=== PATIENT | female | born 2000 | race Caucasian/White ===

== ENCOUNTER 2024-10-08 15:55 | Inpatient (IN) ==
[2024-10-08] MEDS ORDERED: LIDOCAINE 1% LOCAL 20 ML VIAL INFIL PRN (17:20)
[2024-10-08] MEDS ORDERED: CALCIUM CARBONATE 500 MG CHEWABLE TAB PO PRN (17:20)
[2024-10-08] MEDS ORDERED: OXYTOCIN 30 UNITS/NSS 30 UNITS/500 ML BAG IV PRN (17:20)
[2024-10-08] MEDS: ACETAMINOPHEN 325 MG TAB PO PRN (17:33)
--- NOTE | 2024-10-08 17:34 | History & Physical Report ---
Date of Service October 08, 2024 Assessment & Plan (1) Two vessel cord: Plan: FHT now reassuring but given 2 documented decelerations, will start induction tonight with cervical balloon and low dose pitocin. will have her eat regular diet now the cervical balloon insertion Admission and Anticipated Discharge Date Admission Date: October 08, 2024 History of Present Illness Primary Care Provider: MARLIN Ayala Patient is a 24 yo female EDC 10/11/24 who presents at 39 4/7 weeks after an NST done at the office which shows 2 spontaneous decels to 90 bpm. otherwise tracing has been category and the tracing has continued to be category1 during monitoring here in L&D. she is on for IOL tomorrow because of obesity and 2 vessel cord. complicated by IUGR early but resolved at 28 weeks. growth scan at 36 weeks shows EFW @ 45% and AC a@ 42%. also complicated by hypothyroidism. blood type A-positive/ GBS -negative Allergies Allergy/AdvReac Type Severity Reaction Status Date / Time No Known Allergies Allergy Verified 10/08/24 14:43 Home Medications Medication Instructions Recorded Confirmed Type levothyroxine 100 mcg tablet 100 mcg PO DAILY 10/08/24 10/08/24 History vits no.124-ferrous fum 1 tab PO HS 10/08/24 10/08/24 History 27 mg iron-folic acid 800 mcg tablet ( Vitamin) Patient History Medical History Nonimmune to hepatitis B virus Hypothyroid Two vessel umbilical cord Migraine Varicella vaccination Surgical History No history of previous surgery Family History Mother Thyroid cancer hemorrhage Denies family history of Ovarian cancer Breast cancer Colorectal cancer Social History Smoking Status: Former smoker Tobacco Type: E-cigarettes / Vaping Second Hand Exposure: No; Do You Dip or Chew Tobacco: No; Hx Alcohol Use: No Hx Substance Use: No Preferred Language: Romanian Communication Ability: Effective Insurance Appraiser Required: No Beliefs That Will Affect Care: None marital status: marital status details: Brett Mast (22) [phone] Current Living Situation: Alone and Spouse Current Living Situation Comment: , 1 dog, 1 cat current occupational status: employed current occupation: [employer] Other Information That Helps Us Care for You: No Feels Safe at Home: Yes Safety Concerns: Feels Safe At This Time Assistive Devices: None Review of Systems All systems reviewed & are unremarkable except as noted in HPI & below Physical Exam Constitutional: WD/WN, vitals as above Psychiatric: A+Ox3, euthymic affect Genitourinary: Manual OB Exam: + cervical dilation fingertip, + cervical effacement 50% and + station -1 OB Exam Monitor Tracing: + external FHT monitor used, + external uterine monitor used, + category I and + normal FHT variability Results & Data Vital Signs (Past 12 Hours) Vital Signs Temp Pulse Resp BP 10/08/24 16:05 98.2 F 16 10/08/24 16:03 99 H 132/82 Code Status & VTE Plan VTE Prophylaxis Plan VTE Prophylaxis will be ordered: No Coding Level of Care Code 79124 INT INP/OBS CARE 1/40MIN Diagnoses Two vessel cord Q27.0 CPT Codes Misx Procedure Codes - 55081 Placement of cervical dilator: 49188 Placement of cervical dilator ([id number])
[2024-10-08 18:02] LABS: Hematocrit (blood only) 39.3 % (37.0-47.0); Hemoglobin 13.1 g/dl (12.0-16.0); Mean Corpuscular Hemoglobin 28.2 pg (25.0-34.0); Mean Corpuscular Hgb Conc 33.3 g/dL (32.0-36.0); Mean Corpuscular Volume 84.7 fL (80.0-100.0); Mean Platelet Volume 11.3 fL (9.4-12.4); Platelet Count 204 K/uL (130-400); RDW Coefficient of Variation 13.7 % (11.5-14.5); Red Blood Count 4.64 M/uL (4.20-5.40)
--- NOTE | 2024-10-08 19:18 | Labor Progress Brief Note ---
Date of Service October 08, 2024 Subjective Reason For Note: Other cervical balloon placed under direct visualization with assistance of stylet. 40cc sterile water infused into balloon. stylet removed and mccormick placed on traction and secured to her left thigh she tolerated procedure well. FHT's are Category 1 will start low dose pitocin overnight Review of Systems All systems reviewed & are unremarkable except as noted in HPI & below Assessment & Plan Admission and Anticipated Discharge Date Admission Date: October 08, 2024 Physical Exam Constitutional: WD/WN, vitals as above Psychiatric: A+Ox3, euthymic affect Genitourinary: OB Exam Monitor Tracing: + external FHT monitor used, + external uterine monitor used, + category I and + normal FHT variability Results & Data Vital Signs (Past 12 Hours) Vital Signs Temp Pulse Resp BP 10/08/24 16:05 98.2 F 16 10/08/24 16:03 99 H 132/82 Coding Level of Care Code 98257 SUB INP/OBS CARE 08/04MIN
[2024-10-08] MEDS: LACTATED RINGER'S 1,000 ML IV PRN (19:42)
[2024-10-08] MEDS: OXYTOCIN 30 UNITS/NSS 30 UNITS/500 ML BAG IV PRN (19:43)
[2024-10-08] MEDS: diphenhydrAMINE Capsule 25 MG CAP PO STA (21:02)
[2024-10-09] MEDS: LEVOTHYROXINE SODIUM 100 MCG TABLET PO SCH (06:32)
--- NOTE | 2024-10-09 09:43 | Labor Progress Brief Note ---
Date of Service October 09, 2024 Subjective comfortable, balloon has not fallen out. Assessment & Plan (1) Encounter for induction of labor: (2) Two vessel cord: (3) Obesity affecting : Plan will now add pitocin, and see how that and arom helps labor pattern. fhts categ 1. Admission and Anticipated Discharge Date Admission Date: October 08, 2024 Physical Exam Constitutional: WD/WN, vitals as above Genitourinary: Manual OB Exam: + cervical dilation (3-4), + cervical effacement (75%), + station -2 and + amniotic fluid (arom) clear OB Exam Monitor Tracing: + external FHT monitor used, + external uterine monitor used (q4), + category I and + normal FHT variability Results & Data Vital Signs (Past 12 Hours) Vital Signs Temp Pulse Resp BP 10/09/24 09:38 96 H 131/84 10/09/24 08:37 81 143/91 H 10/09/24 07:02 98.4 F 90 20 131/78 10/09/24 06:47 81 107/58 L 10/09/24 05:47 81 95/51 L 10/09/24 04:47 81 120/65 10/09/24 03:47 84 114/62 10/09/24 02:47 82 102/57 L 10/09/24 01:47 79 110/61 10/09/24 00:47 86 109/57 L 10/08/24 23:47 78 10/08/24 23:47 104/56 L 10/08/24 23:00 16 10/08/24 23:00 97.7 F 16 10/08/24 22:47 84 10/08/24 22:47 111/63 10/08/24 21:47 86 10/08/24 21:47 125/66 Coding Level of Care Code None Diagnoses Encounter for induction of labor Z34.90 Two vessel cord Q27.0 Obesity affecting O99.210
[2024-10-09] MEDS ORDERED: BUPIVACAINE 0.25% PF 30 ML VIAL EPI PRN (11:25)
[2024-10-09] MEDS ORDERED: fentaNYL citrate PF 100 MCG/2 ML VIAL EPI PRN (11:25)
[2024-10-09] MEDS ORDERED: fentANYL 2 MCG/ML BUPIVacaine 0.125%-NSS 100ML BAG EPI PRN (11:25)
[2024-10-09] MEDS ORDERED: diphenhydrAMINE 50 MG/ML VIAL IV PRN (11:25)
[2024-10-09] MEDS ORDERED: LIDOCAINE 2% MPF LOCAL 5 ML VIAL EPI PRN (11:25)
[2024-10-09] MEDS ORDERED: ROPIVACAINE 0.5% PF 5 MG/ML 20 ML VIAL EPI PRN (11:25)
[2024-10-09] MEDS ORDERED: NALOXONE HCL 0.4 MG/1 ML VIAL/CARP IV PRN (11:25)
[2024-10-09] MEDS ORDERED: NALBUPHINE HCL INJ 10 MG/ML AMP IV PRN (11:25)
[2024-10-09] MEDS ORDERED: ePHEDrine sulfate 50 MG/ML AMP IV PRN (11:25)
[2024-10-09] MEDS ORDERED: SODIUM CHLORIDE 0.9% PF INJ 10 ML VIAL EPI PRN (11:25)
[2024-10-09] MEDS ORDERED: NALOXONE HCL 1 MG in SODIUM CHLORIDE 0.9% 1,000 ML IV PRN (11:25)
--- NOTE | 2024-10-09 11:25 | Anesthesiology Consultation ---
Date of Service October 09, 2024 Assessment & Plan Chart Review Chart Review: Acceptable Risk for Labor Epidural Consults Requested none History Height/Weight Height: 6 ft Weight: 143.789 kg Allergies Allergy/AdvReac Type Severity Reaction Status Date / Time No Known Allergies Allergy Verified 10/08/24 14:43 Medications Home Medications Medication Instructions Recorded Confirmed Last Taken levothyroxine 100 mcg tablet 100 mcg PO DAILY 10/08/24 10/08/24 10/08/24 vits no.124-ferrous fum 1 tab PO HS 10/08/24 10/08/24 1 Day Ago 27 mg iron-folic acid 800 mcg ~10/07/24 tablet ( Vitamin) Active Medications Generic Name Dose Route Start Last Admin Trade Name Freq PRN Reason Stop Dose Admin Acetaminophen 650 mg 10/08/24 17:20 10/08/24 17:33 Acetaminophen 325 Mg Tab PO 11/07/24 17:19 650 mg Q6H PRN Administration Pain Lactated Ringer's 1,000 mls @ 125 mls/hr 10/08/24 17:20 10/09/24 11:18 Lr IV 10/09/24 17:19 999 mls/hr .Q8H PRN Administration L&D Protocol Protocol Oxytocin 30 units in 500 mls @ 7 mls/hr 10/08/24 17:20 10/09/24 10:30 Pitocin 30 Units/Nss IV 10/10/24 17:19 0.42 units/hr .Q24H PRN 7 mls/hr Labor Induction/Augmentation Titration Protocol 0.42 UNITS/HR Levothyroxine Sodium 100 mcg 10/09/24 06:30 10/09/24 06:32 Levothyroxine Sodium 100 Mcg Tablet PO 11/08/24 06:29 100 mcg DAILYBB JENNIFER Administration Past Medical History Medical History (Updated 10/09/24 @ 09:43 by Steph Samano MD, FACOG) Nonimmune to hepatitis B virus Hypothyroid Two vessel umbilical cord Migraine Varicella vaccination Past Family History Family History Mother Thyroid cancer hemorrhage Denies family history of Ovarian cancer Breast cancer Colorectal cancer Past Surgical History Surgical History No history of previous surgery Social History Smoking Status: Former smoker Do You Dip or Chew Tobacco: No Hx Alcohol Use: No Hx Substance Use: No substance use type: does not use Physical Exam Vital Signs Last Vital Signs Temp 36.9 C 10/09/24 11:00 Pulse 97 H 10/09/24 10:39 Resp 20 10/09/24 11:00 BP 123/81 10/09/24 10:39 Testing Laboratory Results 10/08/24 17:34 Blood Type A Positive 10/08/24 17:34 Antibody Screen NEGATIVE 10/08/24 17:34
[2024-10-09] MEDS: LIDOCAINE 2%/EPINEPHRINE 1:200,000 20 ML PF ONE (11:46)
[2024-10-09] MEDS: fentANYL 2 MCG/ML BUPIVacaine 0.125%-NSS 100ML BAG ONE (11:51)
[2024-10-09] MEDS ORDERED: LIDOCAINE 2%/EPINEPHRINE 1:200,000 20 ML PF ONE (12:33)
--- NOTE | 2024-10-09 13:12 | Anesthesia Procedure Note ---
Date of Service October 09, 2024 Anesthesia Epidural Re-Dose Vital Signs Temp Pulse Resp BP Pulse Ox 36.9 C 117 H 20 127/70 98 10/09/24 12:58 10/09/24 13:06 10/09/24 12:58 10/09/24 13:06 10/09/24 13:02 Notes Pain Intensity: 0 Dilatation (cm): 3.5 Effacement (%): 75 called to bedside d/t continued contraction pain s/p epidural placement. pt c/o contraction pain with no change in motor/sensory. Proceeded to remove the epidural catheter with tip intact and replace epidural catheter as recorded in medical record. pt reports relief after dosing of second epidural. After Epidural Re-Dose Mental Status: alert / awake / arousable Pain: adequately controlled Airway Patency, RR, SpO2: stable & adequate BP & HR: stable & adequate
--- NOTE | 2024-10-09 14:02 | Labor Progress Brief Note ---
Date of Service October 09, 2024 Subjective now comfortable with all new epidural. Assessment & Plan (1) Encounter for induction of labor: (2) Two vessel cord: Plan c/w pit, will place mccormick for cont drainage for now, since remote from delivery. some cx change. fhts categ 1. Admission and Anticipated Discharge Date Admission Date: October 08, 2024 Physical Exam Constitutional: WD/WN, vitals as above Genitourinary: Manual OB Exam: + cervical dilation (3-4), + cervical effacement 80% and + station -2 OB Exam Monitor Tracing: + external FHT monitor used, + external uterine monitor used (q2), + category I and + normal FHT variability Results & Data Vital Signs (Past 12 Hours) Vital Signs Temp Pulse Resp BP Pulse Ox 10/09/24 13:57 106 H 100 10/09/24 13:52 104 H 100 10/09/24 13:51 101 H 108/71 10/09/24 13:47 103 H 100 10/09/24 13:42 103 H 100 10/09/24 13:37 102 H 100 10/09/24 13:36 106 H 118/66 10/09/24 13:32 103 H 100 10/09/24 13:30 18 10/09/24 13:30 18 10/09/24 13:27 113 H 100 10/09/24 13:22 104 H 100 10/09/24 13:21 113 H 114/62 10/09/24 13:20 108 H 111/63 10/09/24 13:18 117 H 114/65 10/09/24 13:17 112 H 100 10/09/24 13:16 118 H 113/64 10/09/24 13:14 118 H 111/56 L 10/09/24 13:12 100 10/09/24 13:12 114 H 10/09/24 13:12 106 H 119/59 L 10/09/24 13:10 122 H 123/62 10/09/24 13:08 136 H 118/62 10/09/24 13:07 140 H 100 10/09/24 13:06 117 H 127/70 10/09/24 13:05 18 10/09/24 13:05 18 10/09/24 13:04 116 H 129/75 10/09/24 13:02 98 10/09/24 13:02 111 H 10/09/24 13:02 114 H 126/75 10/09/24 13:00 107 H 130/74 10/09/24 12:58 98.4 F 103 H 20 128/71 10/09/24 12:57 112 H 99 10/09/24 12:56 100 H 131/77 10/09/24 12:54 105 H 128/73 10/09/24 12:52 98 H 98 10/09/24 12:47 106 H 98 10/09/24 12:45 110 H 136/81 10/09/24 12:42 114 H 100 10/09/24 12:37 101 H 96 10/09/24 12:32 90 97 10/09/24 12:30 83 133/77 10/09/24 12:27 84 96 10/09/24 12:22 93 H 97 10/09/24 12:17 92 H 97 10/09/24 12:15 91 H 127/73 10/09/24 12:14 85 132/84 10/09/24 12:12 91 H 96 10/09/24 12:11 94 H 127/68 10/09/24 12:09 88 135/75 10/09/24 12:07 87 126/75 97 10/09/24 12:05 88 129/75 10/09/24 12:03 91 H 126/77 10/09/24 12:02 93 H 96 10/09/24 12:01 88 131/78 10/09/24 12:00 20 10/09/24 12:00 20 10/09/24 11:59 88 127/76 10/09/24 11:57 96 10/09/24 11:57 95 H 10/09/24 11:57 82 131/71 10/09/24 11:55 87 20 127/74 10/09/24 11:53 93 H 129/80 10/09/24 11:52 95 H 97 10/09/24 11:51 91 H 18 131/77 10/09/24 11:50 99 H 126/80 10/09/24 11:47 93 H 98 10/09/24 11:42 115 H 99 10/09/24 11:38 116 H 141/93 H 10/09/24 11:37 123 H 99 10/09/24 11:32 110 H 99 04/01/25 11:27 95 H 98 10/09/24 11:00 20 10/09/24 11:00 98.4 F 20 10/09/24 10:39 97 H 123/81 10/09/24 09:38 96 H 131/84 10/09/24 08:37 81 143/91 H 10/09/24 07:02 98.4 F 90 20 131/78 10/09/24 06:47 81 107/58 L 10/09/24 05:47 81 95/51 L 10/09/24 04:47 81 120/65 10/09/24 03:47 84 114/62 10/09/24 02:47 82 102/57 L Coding Level of Care Code None Diagnoses Encounter for induction of labor Z34.90 Two vessel cord Q27.0
[2024-10-09] MEDS: ONDANSETRON INJ 2 MG/ML 2 ML VIAL IV PRN (14:10)
--- NOTE | 2024-10-09 17:17 | Labor Progress Brief Note ---
Date of Service October 09, 2024 Subjective urge to push, nursing notes pt complete Assessment & Plan (1) Encounter for induction of labor: (2) Two vessel cord: (3) Obesity affecting : Plan begin 2nd stage. fhts categ 1. anticip soon. Admission and Anticipated Discharge Date Admission Date: October 08, 2024 Physical Exam Constitutional: WD/WN, vitals as above Genitourinary: Manual OB Exam: + cervical dilation 10 cm, + cervical effacement 100% and + station + 3 OB Exam Monitor Tracing: + external FHT monitor used, + external uterine monitor used, + category I and + normal FHT variability Results & Data Vital Signs (Past 12 Hours) Vital Signs Temp Pulse Resp BP Pulse Ox 10/09/24 17:12 149 H 88 L 10/09/24 17:07 100 10/09/24 17:07 142 H 10/09/24 17:07 137 H 157/81 H 10/09/24 17:02 152 H 100 10/09/24 17:00 20 10/09/24 17:00 98.4 F 20 10/09/24 16:57 98 H 100 10/09/24 16:52 103 H 100 10/09/24 16:51 92 H 103/60 10/09/24 16:47 100 H 98 10/09/24 16:42 98 H 100 10/09/24 16:37 97 H 99 10/09/24 16:36 107 H 103/63 10/09/24 16:32 97 H 100 10/09/24 16:27 104 H 100 10/09/24 16:22 106 H 100 10/09/24 16:21 99 H 109/57 L 10/09/24 16:17 104 H 100 10/09/24 16:12 97 H 100 10/09/24 16:08 116 H 111/58 L 10/09/24 16:07 118 H 100 10/09/24 16:02 106 H 100 10/09/24 16:00 20 10/09/24 16:00 20 10/09/24 15:57 113 H 100 10/09/24 15:52 100 10/09/24 15:52 94 H 10/09/24 15:52 98 H 120/68 10/09/24 15:47 88 100 10/09/24 15:42 86 100 10/09/24 15:37 85 100 10/09/24 15:36 89 112/67 10/09/24 15:32 87 100 10/09/24 15:30 20 10/09/24 15:30 20 10/09/24 15:27 89 100 10/09/24 15:23 83 116/69 10/09/24 15:22 83 100 10/09/24 15:17 83 100 10/09/24 15:12 79 100 10/09/24 15:07 87 100 10/09/24 15:06 81 122/63 10/09/24 15:02 92 H 100 10/09/24 15:00 20 10/09/24 15:00 98.4 F 20 10/09/24 14:57 84 100 10/09/24 14:52 100 10/09/24 14:52 81 10/09/24 14:52 78 121/62 10/09/24 14:47 79 99 10/09/24 14:42 81 100 10/09/24 14:37 82 100 10/09/24 14:36 84 120/68 10/09/24 14:32 83 100 10/09/24 14:30 20 10/09/24 14:30 20 10/09/24 14:27 90 100 10/09/24 14:22 95 H 100 10/09/24 14:21 88 111/66 10/09/24 14:17 92 H 100 10/09/24 14:12 96 H 100 10/09/24 14:08 105 H 105/57 L 10/09/24 14:07 98 H 100 10/09/24 14:02 101 H 100 10/09/24 14:00 20 10/09/24 14:00 20 10/09/24 13:57 106 H 100 10/09/24 13:52 104 H 100 10/09/24 13:51 101 H 108/71 10/09/24 13:47 103 H 100 10/09/24 13:42 103 H 100 10/09/24 13:37 102 H 100 10/09/24 13:36 106 H 118/66 10/09/24 13:32 103 H 100 10/09/24 13:30 18 10/09/24 13:30 18 10/09/24 13:27 113 H 100 10/09/24 13:22 104 H 100 10/09/24 13:21 113 H 114/62 10/09/24 13:20 108 H 111/63 10/09/24 13:18 117 H 114/65 10/09/24 13:17 112 H 100 10/09/24 13:16 118 H 113/64 10/09/24 13:14 118 H 111/56 L 10/09/24 13:12 100 10/09/24 13:12 114 H 10/09/24 13:12 106 H 119/59 L 10/09/24 13:10 122 H 123/62 10/09/24 13:08 136 H 118/62 10/09/24 13:07 140 H 100 10/09/24 13:06 117 H 127/70 10/09/24 13:05 18 10/09/24 13:05 18 10/09/24 13:04 116 H 129/75 10/09/24 13:02 98 10/09/24 13:02 111 H 10/09/24 13:02 114 H 126/75 10/09/24 13:00 107 H 130/74 10/09/24 12:58 98.4 F 103 H 20 128/71 10/09/24 12:57 112 H 99 10/09/24 12:56 100 H 131/77 10/09/24 12:54 105 H 128/73 10/09/24 12:52 98 H 98 10/09/24 12:47 106 H 98 10/09/24 12:45 110 H 136/81 10/09/24 12:42 114 H 100 10/09/24 12:37 101 H 96 10/09/24 12:32 90 97 10/09/24 12:30 83 133/77 10/09/24 12:27 84 96 10/09/24 12:22 93 H 97 10/09/24 12:17 92 H 97 10/09/24 12:15 91 H 127/73 10/09/24 12:14 85 132/84 10/09/24 12:12 91 H 96 10/09/24 12:11 94 H 127/68 10/09/24 12:09 88 135/75 10/09/24 12:07 87 126/75 97 10/09/24 12:05 88 129/75 10/09/24 12:03 91 H 126/77 10/09/24 12:02 93 H 96 10/09/24 12:01 88 131/78 10/09/24 12:00 20 10/09/24 12:00 20 10/09/24 11:59 88 127/76 10/09/24 11:57 96 10/09/24 11:57 95 H 10/09/24 11:57 82 131/71 10/09/24 11:55 87 20 127/74 10/09/24 11:53 93 H 129/80 10/09/24 11:52 95 H 97 10/09/24 11:51 91 H 18 131/77 10/09/24 11:50 99 H 126/80 10/09/24 11:47 93 H 98 10/09/24 11:42 115 H 99 10/09/24 11:38 116 H 141/93 H 10/09/24 11:37 123 H 99 10/09/24 11:32 110 H 99 10/09/24 11:27 95 H 98 10/09/24 11:00 20 10/09/24 11:00 98.4 F 20 10/09/24 10:39 97 H 123/81 10/09/24 09:38 96 H 131/84 10/09/24 08:37 81 143/91 H 10/09/24 07:02 98.4 F 90 20 131/78 10/09/24 06:47 81 107/58 L 10/09/24 05:47 81 95/51 L Coding Level of Care Code None Diagnoses Encounter for induction of labor Z34.90 Two vessel cord Q27.0 Obesity affecting O99.210
[2024-10-09] MEDS ORDERED: ACETAMINOPHEN 325 MG TAB PO PRN (17:50)
[2024-10-09] MEDS ORDERED: oxyCODONE/ACETAMINOPHEN 5mg/325mg TAB PO PRN (17:50)
[2024-10-09] MEDS ORDERED: HYDROCORTISONE ACETATE 25 MG SUPP PR PRN (17:50)
[2024-10-09] MEDS ORDERED: bisacodyL 10 MG SUPP PR PRN (17:50)
--- NOTE | 2024-10-09 17:51 | Delivery Summary ---
Vaginal Delivery Summary Date of Service October 09, 2024 Vaginal Delivery Summary The patient dilated to complete and pushed to deliver a viable female infant Apgars 8 and 9 via over intact perineum. Mouth and nose bulb suctioned at perineum. Shoulders and body delivered with ease. Infant was vigorous and crying at . Cord clamped at 30 seconds of life and infant to maternal abdomen where the cord was then doubly clamped and cut. Placenta delivered spontaneously and intact, three-vessel cord. Hemostasis achieved with dilute pitocin and uterine massage. Small vaginal laceration repaired with 3-0 vicryl for excellent hemostasis. Cervix and sulci intact. QBL 245 cc. Mother and baby stable in recovery. [facility] Vaginal Delivery Charge Delivery Type Details:
[2024-10-09] MEDS: OXYTOCIN 30 UNITS/NSS 30 UNITS/500 ML BAG IV PRN (18:03)
--- NOTE | 2024-10-09 18:17 | Anesthesia Procedure Note ---
Date of Service October 09, 2024 Anesthesia Post Epidural Note Vital Signs Vital Signs: Temp Pulse Resp BP Pulse Ox 36.9 C 111 H 20 121/61 98 10/09/24 17:00 10/09/24 18:03 10/09/24 18:04 10/09/24 18:03 10/09/24 18:02 Pain Intensity Head: Pain Intensity: 0 Notes Mental Status: alert / awake / arousable and participated in evaluation Nausea / Vomiting: adequately controlled Pain: adequately controlled Airway Patency, RR, SpO2: stable & adequate BP & HR: stable & adequate Hydration State: stable & adequate Neuraxial Anesthesia: was administered and sensory block is resolving Anesthetic Complications: no major complications apparent and Pt Satisfied with anesthetic care Epidural: Removed without complications and With tip intact
[2024-10-09] MEDS: BUPIVACAINE 0.25% PF 30 ML VIAL ONE (18:27)
[2024-10-09] MEDS: BUPIVACAINE 0.25% PF 30 ML VIAL EPI STA (18:27)
[2024-10-09] MEDS: SODIUM CHLORIDE 0.9% PF INJ 10 ML VIAL ONE (18:27)
[2024-10-09] MEDS: ePHEDrine sulfate 50 MG/ML AMP ONE (18:27)
[2024-10-09] MEDS: LIDOCAINE 2%/EPINEPHRINE 1:200,000 20 ML PF EPI STA (18:27)
[2024-10-09] MEDS: fentaNYL citrate PF 100 MCG/2 ML VIAL EPI STA (18:27)
[2024-10-09] MEDS: fentaNYL citrate PF 100 MCG/2 ML VIAL ONE (18:27)
[2024-10-09] MEDS: SODIUM CHLORIDE 0.9% PF INJ 10 ML VIAL EPI STA (18:28)
[2024-10-09] MEDS: IBUPROFEN 600 MG TAB PO PRN (19:24)
[2024-10-09] MEDS: DOCUSATE SODIUM 100 MG CAP PO SCH (20:51)
--- NOTE | 2024-10-10 06:35 | Obstetrical Progress Note ---
Date of Service October 10, 2024 Assessment & Plan (1) Encounter for care and examination after delivery: (2) Nonimmune to hepatitis B virus: (3) Hypothyroidism affecting : Plan Pt doing well - Encourage ambulation and breast feeding - Pain control with tylenol and ibuprofen, heat for low back - Continue levothyroxine 100mcg qd - Likely discharge 10/11 Admission and Anticipated Discharge Date Admission Date: October 08, 2024 Supervising Physician Co-Signing Physician Notes Resident Physician Supervision Note: I was present with Dr. Kennedy during the history and exam. I discussed the case with the resident and agree with the findings and plan as documented in the note. Any exceptions or clarifications are listed here: stable, having some back pain, eating, voiding, ambulating. abd soft ff 2 down nt, ext nt calves. ppd#1 s/p . doing well, routine care. breast, rhpos, ri. Documented By: Steph Samano MD, FACOG Subjective Pt is 24 yo post- day 1 s/p at 39w5d Ambulation:In room Voiding:voiding normally Passing gas: yes BM: yes Diet tolerance:regular diet Lochia:bloody, no clots Feeding type: breast Current pain level: 5 /10 improved with ibuprofen, heat Resting comfortably this morning in NAD. Denies GOMEZ, CP, SOB, N/V/D, LE pain/swelling. Review of Systems Review of Systems: As per HPI Physical Exam Constitutional: WD/WN, vitals as above Respiratory: normal respiratory effort, lungs clear to auscultation Gastrointestinal (Abdomen): normal bowel sounds, soft, nontender, no hepatosplenomegaly Uterine fundus firm and at level of umbilicus Neurologic: PERRL, EOMI, accommodation nl, no face palsy, no dysarthria Moving all 4 extremities on command Psychiatric: A+Ox3, euthymic affect Results & Data Vital Signs (Past 12 Hours) Vital Signs Temp Pulse Pulse Resp BP BP O2 Del Method 10/10/24 03:45 37.0 C 98 H 16 117/78 Room Air 10/10/24 00:00 36.8 C 109 H 18 120/77 Room Air 10/09/24 20:50 36.6 C 98 H 16 118/71 Room Air 10/09/24 19:49 37.1 C 20 10/09/24 19:48 118 H 121/57 L 10/09/24 19:33 114 H 116/57 L 10/09/24 19:19 20 10/09/24 19:18 111 H 124/59 L 10/09/24 19:03 117 H 134/62 10/09/24 18:49 20 10/09/24 18:48 117 H 119/59 L 10/09/24 18:34 20 10/09/24 18:33 102 H 119/55 L Resident Activity Tracking Resident Involvement: Resident Care Provided Care Provided: Adult Hospital Medicine
[2024-10-10 07:36] LABS: Hematocrit (blood only) 32.2 % (37.0-47.0); Hemoglobin 10.6 g/dl (12.0-16.0); Mean Corpuscular Hemoglobin 28.5 pg (25.0-34.0); Mean Corpuscular Hgb Conc 32.9 g/dL (32.0-36.0); Mean Corpuscular Volume 86.6 fL (80.0-100.0); Mean Platelet Volume 11.2 fL (9.4-12.4); Platelet Count 156 K/uL (130-400); RDW Coefficient of Variation 13.7 % (11.5-14.5); RDW Standard Deviation 43.2 fL (36.4-46.3); Red Blood Count 3.72 M/uL (4.20-5.40); White Blood Count 13.22 K/ul (4.8-10.8)
[2024-10-10] MEDS: BENZOCAINE 20% SPRY 85 APPLN/85 GM CAN EXT PRN (08:47)
[2024-10-10] MEDS: PRENATAL VITAMIN 1 TAB PO SCH (08:47)
[2024-10-10] MEDS ORDERED: DIPHTHER/TETAN/PERTUS Vaccine (Tdap, Adol/Adult) 0.5mL IM ONE (09:00)
[2024-10-10 13:33] VITALS: RESP 18
[2024-10-10] MEDS: bisacodyL 5 MG TABEC PO SCH (20:11)
[2024-10-10 20:27] VITALS: BP 106/71; TEMP 99.1; O2SAT 100
[2024-10-10 21:28] VITALS: PULSE 98
== END 2024-10-10 22:20 | disposition home or self-care (01) | DRG 807 ==
LOC: OPB 15:55 → 4S1 15:56 → 4E2 10-09 20:52